=== PATIENT | female | born 1990 | race Caucasian/White ===

== ENCOUNTER 2022-09-13 00:52 | Emergency (ER) | payer SELFPAY ==
[~2022-09-13] VITALS: Ht 175.3 cm; Wt 96.0 kg
[2022-09-13 00:59] VITALS: O2SAT 98
[2022-09-13] MEDS ORDERED: ACETAMINOPHEN 325MG TABLET PO PRN (01:45)
[2022-09-13 01:55] VITALS: TEMP 98
[2022-09-13 02:06] LABS: CHLORIDE 109 mEq/L (98-107)
[2022-09-13 02:16] LABS: B-HCG QUANTITATIVE < 1 mIU/mL (<3)
[2022-09-13 02:27] LABS: HCG SCREEN NEGATIVE
[2022-09-13 02:46] LABS: BASOPHILS % 0.8 % (0.0-2.0); EOSINOPHILS % 1.4 % (0.0-5.0); HEMATOCRIT. 39.1 % (36.0-48.0); HEMOGLOBIN. 13.1 g/dL (12.0-16.0); LYMPHOCYTES % 25.2 % (20.0-50.0); MEAN CORPUSCULAR HEMOGLOBIN 29.6 pg (28.0-32.0); MEAN CORPUSCULAR VOLUME 88.5 fL (81.0-99.0); MEAN PLATELET VOLUME 9.3 fl (7.4-10.4); MONOCYTES % 6.1 % (2.0-8.0); NEUTROPHILS % 66.5 % (40.0-76.0); RED BLOOD CELL COUNT 4.42 mill/uL (4.2-5.4); RED CELL DISTRIBUTION WIDTH 13.4 % (11.6-14.6)
[2022-09-13 02:48] LABS: PLATELET 250 x1000/uL (130-400)
[2022-09-13] MEDS ORDERED: IBUP-2028 MT (03:46)
[2022-09-13 04:11] VITALS: BP 106/67; PULSE 74; RESP 12
== END 2022-09-13 04:13 | disposition home or self-care (01) ==
LOC: ER 00:52
DX: R10.9 Unspecified abdominal pain (principal); N93.8 Other specified abnormal uterine and vaginal bleeding
CPT/HCPCS: 36415; 76830; 76856; 80053; 84702; 84703; 85025; 86850; 86900; 99284

== ENCOUNTER 2023-08-19 19:38 | Emergency (ER) | payer OTHER ==
[~2023-08-19] VITALS: Ht 167.6 cm; Wt 75.0 kg
[~2023-08-19 19:38] MED LIST: IBUP-2028 MT
[2023-08-19 19:39] VITALS: TEMP 98.1; O2SAT 99
[2023-08-19] MEDS: ACETAMINOPHEN 325MG TABLET PO ONE (20:06)
[2023-08-19 21:22] VITALS: BP 118/76; PULSE 80; RESP 18
== END 2023-08-19 21:24 ==
LOC: ER 19:38
DX: S00.03XA Contusion of scalp, initial encounter (principal); G89.11 Acute pain due to trauma; Y08.89XA Assault by other specified means, initial encounter; Y93.89 Activity, other specified; Y92.89 Other specified places as the place of occurrence of the external cause; Y99.8 Other external cause status
CPT/HCPCS: 99284